=== PATIENT | male | born 1945 | race African-American/Black ===

== ENCOUNTER 2019-08-12 10:39 | Emergency (ER) | payer MEDICARE, OTHER ==
[2019-08-12 11:49] LABS: Hemoglobin 10.9 g/dL (14.0-18.0); Mean Corpuscular HGB CONC 29.8 g/dL (32.0-36.0); Mean Corpuscular Hemoglobin 23.6 pg (27.0-31.0); Mean Corpuscular Volume 79.4 fL (78.0-98.0); Mean Platelet Volume 8.9 fL (7.4-10.4); Platelet Count 218 thou/uL (130-400); RBC Distribution Width 14.2 % (11.5-14.5); Red Blood Cell (RBC) Count 4.61 mill/uL (4.70-6.10); White Blood Cell (WBC) Count 6.5 thou/uL (4.8-10.8)
[2019-08-12 11:50] LABS: #Eosinphils 0.2 thou/uL (0.0-0.7); #Lymphocytes 1.6 thou/uL (1.20-3.40); #Monocytes 0.4 thou/uL (0.11-0.59); #Neutrophils 4.2 thou/uL (1.40-6.50); %Basophils 0.3 % (0.0-1.0); %Eosinophils 3.1 % (0.0-10.0); %Lymphocytes 24.7 % (21.0-51.0); %Monocytes 6.8 % (0.0-10.0); %Neutrophils 65.1 % (42.0-75.0)
[2019-08-12] MEDS ORDERED: Cyclobenzaprine 10 MG TAB ONE ×2 (11:55→11:57)
[2019-08-12 11:57] LABS: ALT (SGPT) 13 U/L (8-55); AST (SGOT) 15 U/L (5-34); Alkaline Phosphatase 67 U/L (40-110); Anion Gap 12 mmol/L (10-20); BUN (Urea Nitrogen) 12 mg/dL (8.4-25.7); Bilirubin, Total 0.2 mg/dL (0.2-1.2); Calc. Creatinine Clearance 0 mL/min (70-130); Calcium 8.9 mg/dL (7.8-10.44); Carbon Dioxide 25 mmol/L (23-31); Chloride 105 mmol/L (98-107); Estimated GFR-MDRD 89; Globulin 3.5 g/dL (2.4-3.5); Glucose 118 mg/dL (83-110); Potassium 4.4 mmol/L (3.5-5.1); Protein, Total 7.5 g/dL (5.8-8.1); Sodium 138 mmol/L (136-145)
[2019-08-12 12:05] LABS: Hypochromia SLIGHT = 6-15 cells (100X) (0-5/hpf); MDiff Complete? YES; Microcytosis SLIGHT = 6-15 cells (100X) (0-5/hpf); Platelet Morphology Comment Appears Adequate; Polychromasia SLIGHT = 2-3 cells (100X) (0-2/hpf)
[2019-08-12] MEDS ORDERED: Sodium Chloride 0.9% 1,000 ML IV SCH (12:15)
[2019-08-12] MEDS ORDERED: Gabapentin 300 MG CAP PO SCH (12:15)
== END 2019-08-12 13:28 | disposition home or self-care (01) ==
LOC: ERS 10:39
DX: R25.2 Cramp and spasm (principal); I25.2 Old myocardial infarction; I25.10 Atherosclerotic heart disease of native coronary artery without angina pectoris; E11.9 Type 2 diabetes mellitus without complications; E78.5 Hyperlipidemia, unspecified; E78.00 Pure hypercholesterolemia, unspecified; Z79.899 Other long term (current) drug therapy; Z79.82 Long term (current) use of aspirin; Z79.84 Long term (current) use of oral hypoglycemic drugs
CPT/HCPCS: 80053; 85025; 96360

== ENCOUNTER 2019-10-08 12:42 | Outpatient (CLI) | payer MEDICARE, OTHER ==
--- NOTE | 2019-10-08 13:29 | RAD ---
XR Foot Rt 3 View STANDARD INDICATION: History of gout COMPARISON: None. FINDINGS: Bones: No acute fracture identified. Joints: No periarticular erosions are evident. There is scattered osteoarthrosis of the forefoot most pronounced at the great toe MTP joint. Lisfranc alignment: Lisfranc alignment appears within normal limits. Soft tissues: There is soft tissue swelling of the right foot IMPRESSION: Soft tissue swelling of the right foot. Scattered osteoarthrosis of the right foot.
== END 2019-10-08 12:43 | disposition home or self-care (01) ==
LOC: BICRAD 12:42
PROVIDERS: ATTEND Family Medicine
DX: M1A.0790 Idiopathic chronic gout, unspecified ankle and foot, without tophus (tophi) (principal); M19.071 Primary osteoarthritis, right ankle and foot; M79.89 Other specified soft tissue disorders
CPT/HCPCS: 36415; 84550